=== PATIENT | male | born 1960 | race Caucasian/White ===

== ENCOUNTER 2017-04-24 07:40 | Outpatient (CLI) | payer BC ==
[2017-04-24] VITALS (18 sets, daily range): BP systolic 110–157; BP diastolic 71–93
[~2017-04-24 07:40] MED LIST: ALLO300T2 PO; ATRNS NAS; FEXO-62 PO; LISI10TA4 PO; MONT10TA24 PO; SILO8CAP PO
== END 2017-04-24 23:59 | disposition home or self-care (01) ==
LOC: CARD DIAG 07:40
PROVIDERS: ATTEND Physician Assistant
DX: R51 Headache (principal); R06.02 Shortness of breath; R11.2 Nausea with vomiting, unspecified; T43.695A Adverse effect of other psychostimulants, initial encounter; I95.89 Other hypotension; R42 Dizziness and giddiness; R00.1 Bradycardia, unspecified; R55 Syncope and collapse; Z88.0 Allergy status to penicillin; Z88.8 Allergy status to other drugs, medicaments and biological substances; Y92.89 Other specified places as the place of occurrence of the external cause
CPT/HCPCS: 93660

== ENCOUNTER 2021-07-13 07:07 | Day surgery (SDC) | payer BC ==
[2021-07-05 11:34] LABS: BASOPHILS # (AUTO) 0.1 X10'3 (0-0.2); BASOPHILS % (AUTO) 1.2 % (0-1); EOSINOPHILS # (AUTO) 0.3 X10'3 (0-0.9); EOSINOPHILS % (AUTO) 6.8 % (0-6); LYMPHOCYTES # (AUTO) 1.2 X10'3 (1.1-4.8); LYMPHOCYTES % (AUTO) 24.7 % (21-51); MEAN CORPUSCULAR HEMOGLOBIN 30.2 PG (27.0-31.0); MEAN CORPUSCULAR HGB CONC 33.4 g/dL (33.0-36.5); MEAN CORPUSCULAR VOLUME 90.4 FL (78-98); MEAN PLATELET VOLUME 7.1 FL (7.4-10.4); MONOCYTES # (AUTO) 0.4 X10'3 (0-0.9); MONOCYTES % (AUTO) 7.7 % (2-12); NEUTROPHILS # (AUTO) 2.9 X10'3 (1.8-7.7); NEUTROPHILS % (AUTO) 59.6 % (42-75); PRE OP HEMATOCRIT 39.1 % (42.0-52.0); PRE OP HEMOGLOBIN 13.1 g/dL (14.0-17.9); PRE OP PLATELET COUNT 248 X10'3 (140-440); RED BLOOD COUNT 4.32 X10'6 (4.70-6.10); RED CELL DISTRIBUTION WIDTH 13.5 % (11.5-14.5)
[2021-07-05 11:44] LABS: ALBUMIN 3.4 G/DL (3.4-5.0); ALKALINE PHOSPHATASE 79 IU/L (46-116); BLOOD UREA NITROGEN 18 MG/DL (7-18); BUN/CREATININE RATIO 20.7 (5.4-32.0); CREATININE 0.87 MG/DL (0.60-1.10); PRE OP ALT 31 U/L (30-65); PRE OP ANION GAP 10 (8-16); PRE OP AST 19 U/L (10-37); PRE OP BILIRUB, TOTAL 0.4 MG/DL (0.0-1.0); PRE OP GLUCOSE 88 MG/DL (70-104); PRE OP SODIUM 147 MMOL/L (135-145); TOTAL CARBON DIOXIDE 23.4 MMOL/L (24-32); TOTAL PROTEIN 6.8 G/DL (6.4-8.2); eGFR 89 ML/MIN
[2021-07-05 11:47] LABS: CHLORIDE 114 MMOL/L (99-107)
[2021-07-13] VITALS (21 sets, daily range): BP systolic 110–138; BP diastolic 64–84
[~2021-07-13] VITALS: Ht 177.8 cm; Wt 90.7 kg
[~2021-07-13 07:07] MED LIST changes: +ACET-890 PO; -ATRNS NAS; -FEXO-62 PO; +FLO0.4C PO; +LISI10TA27 PO; -LISI10TA4 PO; -MONT10TA24 PO; -SILO8CAP PO; +cefazolin/dext.iso 2gm/50ml IV ONE; +famotidine 20mg tablet PO ONE
[2021-07-13] MEDS: ringers solution, lacted 1,000 ML IV SCH ×2 (08:03→16:20)
[2021-07-13] MEDS ORDERED: morphine 4 MG/ML inj SYRINge IV PRN (08:45)
[2021-07-13] MEDS ORDERED: ringers solution, lacted 1,000 ML IV SCH (08:45)
[2021-07-13] MEDS ORDERED: ondansetron/PF 4mg/2ml inj IV PRN ×2 (08:45→14:15)
[2021-07-13] MEDS ORDERED: enalaprilat dihydrate 2.5mg/2ml vial IV PRN (08:45)
[2021-07-13] MEDS ORDERED: fentaNYL/PF 50MCG/1 ML 2ML syringe IV PRN ×2 (08:45)
[2021-07-13] MEDS ORDERED: hydrALAZINE 20mg/ml inj. IV PRN (08:45)
[2021-07-13] MEDS ORDERED: morphine 2 MG/ML inj. syringe IV PRN (08:45)
[2021-07-13] MEDS ORDERED: aprepitant 40mg capsule PO STA (09:50)
[2021-07-13] MEDS ORDERED: ketorolac trometh. 30mg/ml inj. ONE (10:04)
[2021-07-13] MEDS ORDERED: acetaminophen 1,000mg/100ml IV 100 ML IV ONE (10:04)
--- NOTE | 2021-07-13 11:37 | NUR ---
Received from OR via [facility], accompanied by Anesthesiologist DR DAILEY and report given by Anesthesiologist AND WET PAN MIXER. PT DENIES PAIN. PT W/3 WAY ALEX CATHETER W/CONTINUOUS NORMAL SALINE IRRIGATION W/VERY LIGHT PINK URINE IN DRAINAGE BAG. PT W/SAB, DERMATOME LEVEL T-12, L-1. Addendum: 07/13/21 at 1203 by Iliana Castellon RN Amended: Links added.
[2021-07-13] MEDS ORDERED: traMADol 50MG tablet PO PRN (12:00)
[2021-07-13] MEDS ORDERED: proCHLORperazine 10 MG/2 ml inj IV PRN (14:15)
[2021-07-13] MEDS ORDERED: zolpidem 5mg tablet PO PRN (14:15)
[2021-07-13] MEDS ORDERED: LIDOcaine 2% 10ml TOPICAL JELLY (Urojet) TP ONE (14:15)
[2021-07-13] MEDS ORDERED: oxybutynin 5mg tablet PO PRN (14:15)
[2021-07-13] MEDS ORDERED: mag hydrox/Alum hydrox/simeth 30ml oral suspension PO PRN (14:15)
[2021-07-13] MEDS ORDERED: potassium cl 20mEq in 1/2 NS 1,000 ML IV SCH (14:15)
[2021-07-13] MEDS ORDERED: acetaminophen 325mg tablet PO PRN (14:15)
--- NOTE | 2021-07-13 14:41 | NUR ---
Patient in room . I have received report from Iliana SCHULTZosteopathic neurologist and had the opportunity to ask questions and assume patient care.
--- NOTE | 2021-07-13 14:50 | NUR ---
DR ZHENG IN TO SEE PT, TURNED OFF CBI. Report called to receiving nurse. Transferred via BED, HAS 1 LARGE BLACK DUFFLE BAG OF Belongings, RECEIVING RN AT BEDSIDE TO RECEIVE PT. Special Issues communicated to receiving nurse. YES. Addendum: 07/13/21 at 1457 by Iliana Castellon RN Amended: Links added.
--- NOTE | 2021-07-13 17:35 | NUR ---
Pt DC to home with . pt is A & O x4 and in no apparent distress. pt and verbalize understanding of all DC orders. is our floor nurse RN. Minimal teaching was needed. Supplies were provided, leg bag and over night bag was provided. pt got dressed and wheeled to the front where Shazia RN took him home.
[2021-07-13] MEDS ORDERED: docusate sod 100mg capsule PO SCH (20:00)
[2021-07-13] MEDS ORDERED: tamsulosin 0.4mg capsule PO SCH (21:00)
[2021-07-14] MEDS ORDERED: pantoprazole 40mg Tablet.DR PO SCH (07:30)
[2021-07-14] MEDS ORDERED: lisinopril 10 MG tablet PO SCH (08:00)
[2021-07-14] MEDS ORDERED: allopurinol 300 MG tablet PO SCH (08:00)
== END 2021-07-13 17:46 | disposition home or self-care (01) ==
LOC: PAS 07:07 → SUR 3N 14:19 → PAS 17:46
PROVIDERS: ATTEND Urology
DX: N20.1 Calculus of ureter (principal); N21.0 Calculus in bladder; N40.1 Benign prostatic hyperplasia with lower urinary tract symptoms; R39.12 Poor urinary stream; I10 Essential (primary) hypertension; M19.90 Unspecified osteoarthritis, unspecified site; Z20.822 Contact with and (suspected) exposure to COVID-19; Z88.5 Allergy status to narcotic agent; Z79.899 Other long term (current) drug therapy; Z98.52 Vasectomy status; Z98.890 Other specified postprocedural states; Z87.442 Personal history of urinary calculi; Z72.89 Other problems related to lifestyle; Z80.8 Family history of malignant neoplasm of other organs or systems
CPT/HCPCS: 36415; 52318; 52353; 80053; 82948; 85025; C1758; C1769; J0131; J1885; J3480; J7030; J7120; J8501; U0003; U0005; Z7506; Z7508; Z7512; 76000; A4618; G0378

== ENCOUNTER 2022-11-02 12:00 | Emergency (ER) | payer BC ==
[~2022-11-02] VITALS: Ht 175.3 cm; Wt 93.4 kg
[~2022-11-02 12:00] MED LIST changes: -cefazolin/dext.iso 2gm/50ml IV ONE; -famotidine 20mg tablet PO ONE
[2022-11-02 12:32] VITALS: BP 153/98
[2022-11-02] MEDS ORDERED: CEPH500C2 PO (13:03)
[2022-11-02] MEDS ORDERED: cephalexin 250mg capsule PO ONE (13:05)
== END 2022-11-02 13:14 | disposition home or self-care (01) ==
LOC: ER 12:01
DX: S60.450A Superficial foreign body of right index finger, initial encounter (principal); I10 Essential (primary) hypertension; Z88.5 Allergy status to narcotic agent; W45.8XXA Other foreign body or object entering through skin, initial encounter; Y93.89 Activity, other specified; Y92.89 Other specified places as the place of occurrence of the external cause; Y99.8 Other external cause status
CPT/HCPCS: 99283

== ENCOUNTER 2023-09-05 14:16 | Emergency (ER) | payer BC ==
[~2023-09-05] VITALS: Ht 177.8 cm; Wt 90.0 kg
[2023-09-05] MEDS ORDERED: FLO0.4C PO (14:39)
[2023-09-05 15:10] LABS: BILIRUBIN,URINE NEGATIVE (Neg); CLARITY,URINE CLEAR (Clear); COLOR,URINE YELLOW (Yellow); GLUCOSE, URINE NEGATIVE (Neg); KETONES,URINE NEGATIVE (Neg); LEUKOCYTE ESTERASE ,URINE TRACE (Neg); NITRITES, URINE NEGATIVE (Neg); OCCULT BLOOD,URINE NEGATIVE (Neg); PROTEIN,URINE NEGATIVE (Neg); UROBILINOGEN,URINE 0.2 E.U/dL (0.2-1.0)
[2023-09-05 15:21] LABS: UA COLLECTION TYPE CLN CATCH MIDSTREAM
[2023-09-05 15:22] LABS: BACTERIA,URINE FEW /HPF (Neg); MUCUS STRANDS FEW /LPF (Neg); RBC,URINE NONE SEEN /HPF (0-2); SQUAMOUS EPITHELIAL CELL,UR NONE SEEN /LPF (FEW); WBC CLUMPS,URINE FEW /HPF (NEGATIVE); WBC,URINE 0-4 /HPF (0-4)
[2023-09-05 15:51] LABS: BASOPHILS % (AUTO) 0.6 % (0-1); EOSINOPHILS # (AUTO) 0.1 X10'3 (0-0.9); EOSINOPHILS % (AUTO) 0.8 % (0-6); HEMATOCRIT 42.6 % (42.0-52.0); HEMOGLOBIN 14.5 g/dl (14.0-17.9); LYMPHOCYTES # (AUTO) 1.1 X10'3 (1.1-4.8); LYMPHOCYTES % (AUTO) 14.6 % (21-51); MEAN CORPUSCULAR HEMOGLOBIN 31.1 PG (27.0-31.0); MEAN CORPUSCULAR VOLUME 91.4 FL (78-98); MEAN PLATELET VOLUME 7.6 FL (7.4-10.4); MONOCYTES # (AUTO) 0.4 X10'3 (0-0.9); MONOCYTES % (AUTO) 5.4 % (2-12); NEUTROPHILS # (AUTO) 5.9 X10'3 (1.8-7.7); NEUTROPHILS % (AUTO) 78.6 % (42-75); PLATELET COUNT 217 X10'3 (140-440); RED BLOOD COUNT 4.66 X10'6 (4.70-6.10); RED CELL DISTRIBUTION WIDTH 13.7 % (11.5-14.5); WHITE BLOOD COUNT 7.6 X10'3 (4.5-11.0)
[2023-09-05 16:09] LABS: GLUCOSE 100 MG/DL (70-104)
[2023-09-05 16:10] LABS: ALANINE AMINOTRANSFERASE 25 U/L (12-78); ALBUMIN 3.5 G/DL (3.4-5.0); ALKALINE PHOSPHATASE 87 IU/L (46-116); ANION GAP 4 (8-16); ASPARTATE AMINO TRANSFERASE 11 U/L (10-37); BILIRUBIN,TOTAL 0.6 MG/DL (0.1-1.0); BLOOD UREA NITROGEN 17 MG/DL (7-18); BUN/CREATININE RATIO 18.7 (10.0-20.0); CALCIUM 8.3 MG/DL (8.5-10.1); CHLORIDE 107 MMOL/L (99-107); CREATININE 0.91 MG/DL (0.60-1.10); LIPASE 23 U/L (16-77); POTASSIUM 3.3 MMOL/L (3.5-5.1); SODIUM 139 MMOL/L (135-145); TOTAL CARBON DIOXIDE 28.4 MMOL/L (24-32); TOTAL PROTEIN 6.9 G/DL (6.4-8.2); eCRCL 86 ML/MIN; eGFR 84 ML/MIN
[2023-09-05] MEDS ORDERED: iohexol 300mg/ml 100ml inj. ONE (17:57)
[2023-09-05] MEDS ORDERED: HYDR-3965 PO (20:29)
[2023-09-05] MEDS ORDERED: CEPH-585 PO (20:29)
[2023-09-05 21:00] VITALS: BP 168/104; PULSE 59; RESP 13; O2SAT 97
[2023-09-05 21:39] VITALS: TEMP 97.7
== END 2023-09-05 21:42 | disposition home or self-care (01) ==
LOC: ER 14:17
DX: N39.0 Urinary tract infection, site not specified (principal); N20.0 Calculus of kidney; R10.9 Unspecified abdominal pain; I10 Essential (primary) hypertension; Z88.5 Allergy status to narcotic agent
CPT/HCPCS: 36415; 74178; 80053; 81001; 83690; 85025; 87088; 99285; J3490; Q9967

== ENCOUNTER 2023-09-08 10:42 | Emergency (ER) | payer BC ==
[~2023-09-08] VITALS: Ht 177.8 cm; Wt 73.5 kg
[~2023-09-08 10:42] MED LIST changes: -ACET-890 PO; +CEPH-585 PO; +HYDR-3965 PO; -LISI10TA27 PO
[2023-09-08 10:48] VITALS: TEMP 97.5
[2023-09-08 14:02] VITALS: BP 164/95; PULSE 61; RESP 16; O2SAT 99
[2023-09-08 14:58] LABS: BASOPHILS % (AUTO) 0.9 % (0-1); EOSINOPHILS # (AUTO) 0.1 X10'3 (0-0.9); EOSINOPHILS % (AUTO) 2.6 % (0-6); HEMATOCRIT 44.9 % (42.0-52.0); HEMOGLOBIN 15.4 g/dl (14.0-17.9); LYMPHOCYTES # (AUTO) 1.2 X10'3 (1.1-4.8); LYMPHOCYTES % (AUTO) 21.6 % (21-51); MEAN CORPUSCULAR HEMOGLOBIN 31.3 PG (27.0-31.0); MEAN CORPUSCULAR HGB CONC 34.2 g/dL (33.0-36.5); MEAN CORPUSCULAR VOLUME 91.6 FL (78-98); MEAN PLATELET VOLUME 7.4 FL (7.4-10.4); MONOCYTES # (AUTO) 0.4 X10'3 (0-0.9); MONOCYTES % (AUTO) 7.5 % (2-12); NEUTROPHILS # (AUTO) 3.8 X10'3 (1.8-7.7); NEUTROPHILS % (AUTO) 67.4 % (42-75); PLATELET COUNT 206 X10'3 (140-440); RED CELL DISTRIBUTION WIDTH 13.4 % (11.5-14.5); WHITE BLOOD COUNT 5.6 X10'3 (4.5-11.0)
[2023-09-08 15:05] LABS: BILIRUBIN,URINE NEGATIVE (Neg); CLARITY,URINE CLEAR (Clear); COLOR,URINE YELLOW (Yellow); GLUCOSE, URINE NEGATIVE (Neg); KETONES,URINE NEGATIVE (Neg); LEUKOCYTE ESTERASE ,URINE NEGATIVE (Neg); NITRITES, URINE NEGATIVE (Neg); OCCULT BLOOD,URINE NEGATIVE (Neg); PH,URINE 5.5 (4.8-8.0); PROTEIN,URINE NEGATIVE (Neg); UROBILINOGEN,URINE 0.2 E.U/dL (0.2-1.0)
[2023-09-08 15:06] LABS: UA COLLECTION TYPE CLN CATCH MIDSTREAM
[2023-09-08 15:13] LABS: APTT 30 SECONDS (22-32); PROTHROMBIN TIME 10.4 SECONDS (9.0-12.0)
[2023-09-08 15:27] LABS: ALANINE AMINOTRANSFERASE 28 U/L (12-78); ALBUMIN 3.6 G/DL (3.4-5.0); ALKALINE PHOSPHATASE 102 IU/L (46-116); ANION GAP 13 (8-16); ASPARTATE AMINO TRANSFERASE 14 U/L (10-37); BILIRUBIN,TOTAL 0.5 MG/DL (0.1-1.0); BLOOD UREA NITROGEN 19 MG/DL (7-18); BUN/CREATININE RATIO 18.3 (10.0-20.0); CALCIUM 8.5 MG/DL (8.5-10.1); CHLORIDE 105 MMOL/L (99-107); CREATININE 1.04 MG/DL (0.60-1.10); GLUCOSE 113 MG/DL (70-104); LIPASE 20 U/L (16-77); POTASSIUM 3.7 MMOL/L (3.5-5.1); SODIUM 139 MMOL/L (135-145); TOTAL PROTEIN 7.2 G/DL (6.4-8.2); eCRCL 75 ML/MIN; eGFR 72 ML/MIN
[2023-09-08] MEDS ORDERED: HYDR-3965 PO (16:45)
[2023-09-08] MEDS ORDERED: ONDA4TAB12 PO (16:48)
== END 2023-09-08 17:06 | disposition home or self-care (01) ==
LOC: ER 10:43
DX: N23 Unspecified renal colic (principal); I10 Essential (primary) hypertension; R79.1 Abnormal coagulation profile; Z88.5 Allergy status to narcotic agent; Z79.2 Long term (current) use of antibiotics; Z79.899 Other long term (current) drug therapy
CPT/HCPCS: 36415; 74176; 80053; 81003; 83605; 83690; 85025; 85610; 85730; 87040; 99284

== ENCOUNTER 2025-04-05 07:13 | Emergency (ER) | payer BC ==
[~2025-04-05] VITALS: Ht 177.8 cm; Wt 97.9 kg
[~2025-04-05 07:13] MED LIST changes: -CEPH-585 PO; +ONDA-243 PO
[2025-04-05 07:16] VITALS: TEMP 98.3
--- NOTE | 2025-04-05 07:54 | ELECTROCARDIOGRAPH REPORT ---
[facility] Test Date: 2025-04-05 Test Time: 07:52:30 Pat Name: JESSI VERA Department: [facility] Patient ID: [facility]-[id number] Room: Gender: M Healthcare Economics Manager: : 1960 Requested By: LEXIE DAWN Order Number: [id number] Reading MD: Measurements Intervals [place] Rate: 61 P: 10 HI: 219 QRS: 46 QRSD: 97 T: 55 QT: 423 QTc: 426 Interpretive Statements Sinus rhythm Borderline prolonged HI interval Baseline wander in lead(s) V1 Please click the below link to view image of tracing.
[2025-04-05 08:13] LABS: MEAN PLATELET VOLUME 7.2 FL (7.4-10.4); RED CELL DISTRIBUTION WIDTH 13.2 % (11.5-14.5)
--- NOTE | 2025-04-05 08:18 | RADIOLOGY REPORT ---
CHEST RADIOGRAPH INDICATION: CP TECHNIQUE: Single frontal view of the chest was obtained COMPARISON: None FINDINGS: Lines and Tubes: None Lungs: Clear Pleura: No effusion. No pneumothorax. Cardiomediastinal contours: Unremarkable Bones: Unremarkable IMPRESSION: No acute disease.
[2025-04-05 08:34] LABS: CREATININE 0.90 MG/DL (0.60-1.10); PRO BRAIN NATRIURETIC PEPTIDE 45 PG/ML (0-125); TOTAL CARBON DIOXIDE 26.8 MMOL/L (24-32); eCRCL 86 ML/MIN; eGFR 85 ML/MIN
--- NOTE | 2025-04-05 09:00 | Physician Documentation ---
History of Present Illness CC: LEXIE DAWN MD ~ Chief Complaint: Numbness Stated Complaint: LEFT SIDED TINGLING Time Seen by MD: 08:22 OK to notify your PCP?: Yes Primary Medical Doctor: Dr. Guy Mode of Arrival: POV, Ambulatory HPI 64 year old male with HTN, Kidney stones came to the ER today with chief c/o left hand tingling and left cheek numbness for a couple of mins while on his way to work while driving today morning at 630 AM, he denies weakness, no other body part tingling or numbness, denies headches, neck pain, seizures, denies previous h/o TIA, stroke. He had htn, nut currently not on medication, stated he was in the clinic last week and his BP then was 200/140, but home BPs were in the range of 150s he is recently started on rosuvastatin for high cholesterol denies DM fam h/o stroke in mom when her age was 80 Medication Reconciliation Allergies: Coded Allergies: codeine (Verified Allergy, Unknown, NAUSEA, 07/12/21) Scheduled Allopurinol (Zyloprim), 1 TABLET PO DAILY, (Reported) Tamsulosin Hcl (Flomax), 1 CAP PO BID, (Reported) Scheduled PRN Hydrocodone Bit/Acetaminophen 5/325 MG ([place] 5/325 MG), 1-2 TAB PO Q4-6 hours PRN for pain ONDANSETRON ODT 4mg tablet (Ondansetron Odt), 4 MG PO TID PRN for nausea Past Medical History Past Medical History: Hypertension, Kidney Stones Past Surgical History: no surgical history Drug Use: none Lives with: Family Lives In: Home Occupation: employed Review of Systems All Other Systems at this time: Reviewed and Negative Physical Exam Vital Signs: Temperature: 98.3, Source: Oral, Heart Rate: 68, Respiratory Rate: 14, BP: 189/108, Pulse Oximetry: 98, Weight: 97.900 Oxygen Flow Rate: 0 General Appearance: alert, no apparent distress Neck: non-tender, full range of motion Pupils/EOM/Fundus: PERRLA Respiratory: lungs clear, normal breath sounds Chest: no accessory muscle use Cardiovascular: regular rate, rhythm Cardiovascular s1, s2 heard Gastrointestinal: non-tender Orientation / Memory / CN: oriented x3 Coordination / Gait: normal gait Motor / Sensory: no motor deficit, no sensory deficit, no pronator drift Motor / Sensory power 5/5 all extremeties no cranial nerve deficit Cerebellar Function: normal Progress Results/Orders Results/Orders Orders - ELBA FLETCHER, LIO Ct Head (04/05/25 10:24) Cta Neck/Head (04/05/25 10:25) Completed Orders - ELBA FLETCHER, RES Ct Head (04/05/25 10:24) Cta Neck/Head (04/05/25 10:25) Iohexol 350mg/Ml 100ml (Omnipaque 350mg/ (04/05/25 10:08) Amlodipine Tablet (Norvasc Tablet) (04/05/25 10:45) Medications Received in ER Medications (Trade) Dose Ordered Sig/Calixto Route PRN Reason Start Time Stop Time Status Last Admin Dose Admin (Norvasc tablet) 5 mg ONCE ONCE PO 04/05/25 10:45 04/05/25 10:46 DC 04/05/25 11:00 5 MG Vital Signs 04/05/25 04/05/25 04/05/25 04/05/25 07:16 07:46 07:46 08:04 Temp 98.3 Pulse 67 68 Resp 16 14 B/P (MAP) 168/93 189/108 (135) Pulse Ox 98 98 98 O2 Delivery Room Air* O2 Flow Rate 0 0 0 FiO2 21 04/05/25 04/05/25 04/05/25 11:00 11:06 11:21 Pulse 87 64 87 Resp 16 16 B/P (MAP) 172/100 (124) 168/100 Pulse Ox 98 98 O2 Flow Rate 0 Laboratory Tests Test 04/05/25 07:58 04/05/25 10:11 White Blood Count 5.0 Red Blood Count 4.87 Hemoglobin 14.9 Hematocrit 43.2 Mean Corpuscular Volume 88.8 Mean Corpuscular Hemoglobin 30.5 Mean Corpuscular Hemoglobin Concent 34.4 Red Cell Distribution Width 13.2 Platelet Count 222 Mean Platelet Volume 7.2 L Neutrophils (%) (Auto) 70.0 Lymphocytes (%) (Auto) 20.1 L Monocytes (%) (Auto) 7.7 Eosinophils (%) (Auto) 1.4 Basophils (%) (Auto) 0.8 Neutrophils # (Auto) 3.5 Lymphocytes # (Auto) 1.0 L Monocytes # (Auto) 0.4 Eosinophils # (Auto) 0.1 Basophils # (Auto) 0.0 CBC Comment Sodium Level 141 Potassium Level 3.6 Chloride Level 107 Carbon Dioxide Level 26.8 Anion Gap 7 L Blood Urea Nitrogen 14 Creatinine 0.90 Estimated GFR/1.73 m2 85 BUN/Creatinine Ratio 15.6 Glucose Level 87 Calcium Level 8.5 Troponin I High Sensitivity 8 7 Pro-B-Type Natriuretic Peptide 45 Albumin 3.8 Chemistry Comments Troponin I High Sens Percent Delta 12 Troponin I Hi Sens Absolute Change -1 Medical Decision Making Additional information obtaine: old records, family Findings , Differential Dx:Considerations: Include: CVA, TIA Additional Information 64 year old male with HTN, Kidney stones came to the ER today with chief c/o left hand tingling and left cheek numbness for a couple of mins while on his way to work while driving today morning at 630 AM, he denies weakness, no other body part tingling or numbness, denies headches, neck pain, seizures, denies previous h/o TIA, stroke. examination is normal with no motor, sensory and cranial nerve defciit, no cervical spine tenderness Labs are normal- ruled out hypocalcemia and hypokalemia EKG- sinus rythrm, midly prolonged OR interval. no afib DD include TIA, cervical neuropathy, less chances of focal seizures, migraine with aura, trigeminal neuralgia Given the h/o uncontrolled htn and hld, will do ct head and cta head/neck to r/o stroke/TIA/Large vessel occlusion/dissection CT head- chronic microvascular changes cta head/ neck- negative for occlusion symptoms likely 2/2 htn, will give amlodipine 5mg once Departure Time of Disposition: 11:28 Disposition: 01 HOME / SELF CARE / HOMELESS Impression: Primary Impression: Numbness Condition: Improved Discharge Instructions: Hypertension, Adult Additional Instructions: Please follow up with PCP for hypertension, We have prescribed you amlodipine 5 mg once daily for high blood pressure recommend to monitor BPs at home return to ER in case of any recurrence of symptoms please f/u with PCP regarding right carotid stenosis seen on CTA Referrals: NO PRIMARY CARE PROVIDER (PCP) Prescriptions Amlodipine Besylate (Amlodipine Besylate) 5 Mg Tablet 1 TAB PO DAILY for 30 Days, #30 TAB 0 Refills Prov: PUTTAMarline,ELBA, RES 04/05/25 Education Educated: Patient, Family Educated regarding: treatment, need for follow up Signature Scribe Signature: . Attestation: Patient findings, assessment and treatment chari, disposition plan d/w ELBA Barriga MD, RES Apr 05, 2025 09:00
--- NOTE | 2025-04-05 10:45 | RADIOLOGY REPORT ---
EXAM: CT CT HEAD INDICATION: left hand and face tingling TECHNIQUE: CT of the head without intravenous contrast. Radiation Dose Information: CT Dose: CTDI volume is 54.9 mGy. Dose-length product is 915.15 mGy*cm The dose indicators for CT are the volume Computed Tomography (CT) Dose Index (CTDIvol) and the Dose Length Product (DLP), and are measured in units of mGy and mGy-cm, respectively. These indicators are not patient dose, but values generated from the CT scanner acquisition factors. The report includes radiation exposure data for exposures received during this examination. COMPARISON: None FINDINGS: Motion artifact degrades fine detail. No acute territorial infarct, intracranial hemorrhage, or mass effect. There are global involutional changes with compensatory prominence of the ventricles and sulci. Patchy periventricular and subcortical white matter hypoattenuation is nonspecific but may be related to small vessel ischemic disease. The orbits are normal. The paranasal sinuses and mastoid air cells are clear. The osseous structures are unremarkable. IMPRESSION: 1. No acute territorial infarct, intracranial hemorrhage, or mass effect. 2. Age-related involutional changes. Chronic microvascular changes. 3. If clinical symptoms persist, MRI may be beneficial in further evaluation.
--- NOTE | 2025-04-05 11:07 | RADIOLOGY REPORT ---
CLINICAL INFORMATION: Left hand and face tingling. TECHNIQUE: Axial CTA images of the head and neck were obtained after the uneventful administration of 100 mL Omnipaque 350 IV contrast. Coronal and sagittal reformatted images and MIP images were obtained, reviewed, and stored. Measurements of carotid stenosis are made per NASCET criteria. All CT scans at this medical facility are performed using dose modulation techniques as appropriate to a performed exam including the following: Automated exposure control was utilized; adjustment of the MA and/or KV according to patient size; and use of iterative reconstruction technique. CTDIvol = 15.17, 13.6, 0.14 mGy DLP = 663.3 mGy-cm COMPARISON: None FINDINGS: Motion artifact limits evaluation, particularly at the level of the cervical internal carotid arteries. CTA HEAD: Posterior cerebral arteries, basilar artery, and intracranial segments of the distal vertebral arteries are normal in caliber and course with no evidence of aneurysm, large vessel occlusion, significant stenosis, or vascular malformation. The anterior and middle cerebral arteries and intracranial segments of the distal internal carotid arteries are normal in caliber and course with no evidence of aneurysm, large vessel occlusion, significant stenosis, or vascular malformation. CTA NECK: Normal configuration of the aortic arch with patent origins of the brachiocephalic artery, left common carotid artery, and left subclavian artery. Subclavian arteries are patent with no significant stenosis. [id number] calcified plaque at the right carotid bifurcation without significant stenosis. The bilateral common carotid, internal carotid, and external carotid arteries are otherwise patent with no significant stenosis or evidence of dissection. Vertebral arteries are patent with no significant stenosis or evidence of dissection. IMPRESSION: 1. CTA head demonstrates no evidence of large vessel occlusion, aneurysm, or significant stenosis. 2. CTA neck demonstrates no evidence of carotid or vertebral dissection or significant stenosis. 3. Motion artifact limits evaluation, particularly at the level of the cervical internal carotid arteries. 4. Additional findings as detailed above.
[2025-04-05 11:21] VITALS: BP 168/100; PULSE 87; RESP 16; O2SAT 98
[2025-04-05] MEDS ORDERED: AMLO5TAB16 PO (11:29)
== END 2025-04-05 11:34 | disposition home or self-care (01) ==
LOC: ER 07:14
DX: R20.0 Anesthesia of skin (principal); R20.2 Paresthesia of skin; I10 Essential (primary) hypertension; E78.00 Pure hypercholesterolemia, unspecified; Z88.5 Allergy status to narcotic agent; Z87.442 Personal history of urinary calculi; Z79.899 Other long term (current) drug therapy
CPT/HCPCS: 36415; 70450; 70496; 70498; 71045; 80048; 83880; 84484; 85025; 93005; 99285; Q9967